=== PATIENT | female | born 1995 | race American Indian/Alaskan Native ===

== ENCOUNTER 2019-07-16 20:50 | Emergency (ER) | payer MEDICAID ==
[2019-07-16 20:56] VITALS: BP 149/78
--- NOTE | 2019-07-17 00:50 | Ultrasound Report ---
US OB <= 14 weeks fetus, US OB transvaginal INDICATION / CLINICAL INFORMATION: PAIN/CRAMPING WITH PREGNACY. COMPARISON: None available. FINDINGS: There is a single viable intrauterine gestation. The crown-rump length is 6.1 cm corresponding to a 12 week 4 day gestation. heart rate is recorded at 179 bpm. The placenta is anterior. There is a 2 cm complex right ovarian cyst. The left ovary is normal. IMPRESSION: 1. Single living 12 week 4 day intrauterine gestation. Signer Name: Fitz Shin MD Signed: 07/17/2019 12:45 AM Workstation Name: [id number]
[2019-07-17] MEDS ORDERED: ZOFRAN ODT PO ONE (01:09)
[2019-07-17] MEDS ORDERED: NORCO 5/325 PO ONE (01:09)
[2019-07-17] MEDS ORDERED: TYLENOL #3 PO ONE (01:10)
[2019-07-17 01:13] LABS: Amorphous Crystals,Urine Few; Bilirubin,Urine NEG (Negative); Blood,Urine NEG (Negative); Color,Urine Yellow (Yellow); Mucus,Urine FEW /HPF; Protein,Urine <15 mg/dL mg/dL (Negative)
--- NOTE | 2019-07-17 01:49 | Emergency Department Report ---
ED General Adult HPI - General Chief complaint: Abdominal Pain Stated complaint: TOOTHACHE,EAR ACHE,LOWER STOMACH PAIN Source: patient Mode of arrival: Ambulatory Limitations: No Limitations - History of Present Illness Initial comments: Patient is a A0 24-year-old -[place] Citizen female who is approximately 12 weeks gestation and presents to the ED with complaint of acute onset persistent sore throat, bilateral ear pain, upper lip swelling with ulcerated lesions, nausea, vomiting, low abdominal pain for the last 2 days. Patient denies fever, chills, dizziness, chest pain, change in vision, vaginal bleeding, dysuria, urinary frequency and urgency or seizures and syncope. MD Complaint: Severe right ear pain, sore throat, oral lesions -: Sudden Location: face, mouth Radiation: non-radiation Severity scale (0 -10): 7 Quality: aching, sharp, constant Consistency: constant Improves with: none Worsens with: none Associated Symptoms: denies other symptoms, cough, headaches, nausea/vomiting. denies: confusion, chest pain, diaphoresis, fever/chills, loss of appetite, malaise, rash, seizure, syncope, weakness, other Treatments Prior to Arrival: none - Related Data Previous Rx's Medication Instructions Recorded Last Taken Type Acetaminophen/Codeine [Tylenol 1 tab PO Q6H PRN #12 tab 07/17/19 Unknown Rx /Codeine # 3 tab] Acyclovir [Zovirax Tab] 400 mg PO Q8H #30 tab 07/17/19 Unknown Rx Clindamycin [Clindamycin CAP] 300 mg PO Q8HR #60 capsule 07/17/19 Unknown Rx Promethazine [Phenergan] 25 mg PO Q6HR PRN #30 tab 07/17/19 Unknown Rx Allergies Allergy/AdvReac Type Severity Reaction Status Date / Time amoxicillin Allergy Unknown Verified 07/16/19 20:56 azithromycin [From Zithromax] Allergy Unknown Verified 07/16/19 20:56 ED Review of Systems ROS: Stated complaint: TOOTHACHE,EAR ACHE,LOWER STOMACH PAIN Other details as noted in HPI Constitutional: denies: chills, fever Eyes: denies: eye pain, eye discharge, vision change ENT: ear pain (right ear), throat pain, dental pain, congestion, other (painful oral lesions) Respiratory: denies: cough, shortness of breath, wheezing Cardiovascular: denies: chest pain, palpitations, dyspnea on exertion Endocrine: no symptoms reported Gastrointestinal: nausea, vomiting. denies: abdominal pain, diarrhea Genitourinary: denies: urgency, dysuria, discharge Musculoskeletal: denies: back pain, joint swelling, arthralgia Skin: denies: rash, lesions Neurological: denies: headache, weakness, paresthesias Psychiatric: denies: anxiety, depression Hematological/Lymphatic: denies: easy bleeding, easy bruising ED Past Medical Hx - Social History Smoking Status: Current Every Day Smoker Substance Use Type: None - Medications Home Medications: Home Medications Medication Instructions Recorded Confirmed Last Taken Type Acetaminophen/Codeine [Tylenol 1 tab PO Q6H PRN #12 tab 07/17/19 Unknown Rx /Codeine # 3 tab] Acyclovir [Zovirax Tab] 400 mg PO Q8H #30 tab 07/17/19 Unknown Rx Clindamycin [Clindamycin CAP] 300 mg PO Q8HR #60 capsule 07/17/19 Unknown Rx Promethazine [Phenergan] 25 mg PO Q6HR PRN #30 tab 07/17/19 Unknown Rx ED Physical Exam - General Limitations: No Limitations General appearance: alert, in no apparent distress - Head Head exam: Present: atraumatic, normocephalic, normal inspection - Eye Eye exam: Present: normal appearance, PERRL, EOMI Pupils: Present: normal accommodation - ENT ENT exam: Present: mucous membranes moist, other (Erythematous bulging bilateral tympanic membranes; grossly congested nasal passages; painful severely tender in early ulcerated lesions.) - Neck Neck exam: Present: normal inspection, full ROM. Absent: tenderness - Respiratory Respiratory exam: Present: normal lung sounds bilaterally. Absent: respiratory distress, wheezes, rales, rhonchi, chest wall tenderness, accessory muscle use, decreased breath sounds - Cardiovascular Cardiovascular Exam: Present: normal rhythm, tachycardia, normal heart sounds. Absent: systolic murmur, diastolic murmur, rubs, gallop - GI/Abdominal GI/Abdominal exam: Present: soft, normal bowel sounds. Absent: tenderness, guarding, hyperactive bowel sounds, hypoactive bowel sounds, organomegaly - Extremities Exam Extremities exam: Present: normal inspection, full ROM, normal capillary refill - Back Exam Back exam: Present: normal inspection, full ROM. Absent: CVA tenderness (L), muscle spasm - Neurological Exam Neurological exam: Present: alert, oriented X3, CN II-XII intact, normal gait, reflexes normal - Psychiatric Psychiatric exam: Present: normal affect, normal mood - Skin Skin exam: Present: warm, dry, intact, normal color. Absent: rash ED Course Vital Signs 07/16/19 20:55 Temperature 98.4 F Pulse Rate 100 H Respiratory 16 Rate Blood Pressure 149/78 O2 Sat by Pulse 96 Oximetry - Reevaluation(s) Reevaluation #1: 07/17/19 01:50 This is a A0 -[place] female who is approximately 12 weeks gestation who presents to the ED with complaint of acute onset persistent severe bilateral ear pain, sore throat, nasal and sinus condition, painful oral lesions and sore throat for the last 2 days. In the ED, patient is alert and oriented 3 and is not in distress but appears to be in pain and is tachycardic in tri age. Patient was treated for [place] [id number] and transvaginal ultrasound shows a single viable intrauterine gestation. The crown- rump length is 6.1 cm corresponding to a 12 week 4 day gestation. heart rate is recorded at 179 bpm. The placenta is anterior. There is a 2 cm complex right ovarian cyst. The left ovary is normal. Urinalysis is unremarkable. Patient was treated for pain in the ED and on reevaluation, patient's pain is well controlled with medications. Patient was discharged home on antibiotics and antivirals as well as pain medications and antiemetics. Patient was advised follow-up with [employer] physician in 7-10 days for reevaluation or return to the ED immediately if symptoms get worse. 07/17/19 02:58 ED Medical Decision Making - Radiology Data Radiology results: report reviewed, image reviewed Findings [facility] [address] [place] [address] Ultrasound Report Signed Patient: ESTEBAN VALENZUELA MR#: [id number] : 1995 Acct:[id number] Age/Sex: 24 / F ADM Date: 07/16/19 Loc: ED Attending Dr: Ordering Physician: DEMARCUS LEAL Date of Service: 07/16/19 Procedure(s): US OB transvaginal Accession Number(s): [id number] cc: DEMARCUS LEAL US OB <= 14 weeks fetus, US OB transvaginal INDICATION / CLINICAL INFORMATION: PAIN/CRAMPING WITH PREGNACY. COMPARISON: None available. FINDINGS: There is a single viable intrauterine gestation. The crown-rump length is 6.1 cm corresponding to a 12 week 4 day gestation. heart rate is recorded at 179 bpm. The placenta is anterior. There is a 2 cm complex right ovarian cyst. The left ovary is normal. IMPRESSION: 1. Single living 12 week 4 day intrauterine gestation. Signer Name: Fitz Shin MD Signed: 07/17/2019 12:45 AM Workstation Name: [id number] Transcribed By: [place] Dictated By: Fitz Shin MD Electronically Authenticated By: Fitz Shin MD Signed Date/Time: 07/17/1944 DD/ TD/TT: - Medical Decision Making This is a A0 -[place] Citizen female who is approximately 12 weeks gestation who presents to the ED with complaint of acute onset persistent severe bilateral ear pain, sore throat, nasal and sinus condition, painful oral lesions and sore throat for the last 2 days. In the ED, patient is alert and oriented 3 and is not in distress but appears to be in pain and is tachycardic in triage. Patient was treated for pain in [place] [id number] and transvaginal ultrasound shows a single viable intrauterine gestation. The crown- rump length is 6.1 cm corresponding to a 12 week 4 day gestation. heart rate is recorded at 179 bpm. The placenta is anterior. There is a 2 cm complex right ovarian cyst. The left ovary is normal. Urinalysis is unremarkable. Patient was treated for pain in the ED and on reevaluation, patient's pain is well controlled with medications. Patient was discharged home on antibiotics and antivirals as well as pain medications and antiemetics. Patient was advised follow-up with [employer] physician in 7-10 days for reevaluation or return to the ED immediately if symptoms get worse. - Differential Diagnosis Otitis media; Acute URI; Herpes simplex; pharyngitis, Ovarian Cyst; UTI Critical care attestation.: If time is entered above; I have spent that time in minutes in the direct care of this critically ill patient, excluding procedure time. ED Disposition Clinical Impression: Acute otitis media with effusion of both ears, Herpes zoster infection of oral mucosa Acute pharyngitis Qualifiers: Pharyngitis/tonsillitis etiology: unspecified etiology Qualified Code(s): J02.9 - Acute pharyngitis, unspecified Ovarian cyst Qualifiers: Laterality: right Qualified Code(s): N83.201 - Unspecified ovarian cyst, right side Disposition: TO HOME OR SELFCARE Is pt being admited?: No Does the pt Need Aspirin: No Condition: Stable Instructions: Pharyngitis (ED), Oral Herpes Simplex Virus Infections (ED), Abdominal Pain (ED) Additional Instructions: Take medication with food, drink plenty of fluids and follow-up with your [facility] care physician in 5-7 days for reevaluation. Return to the ED immediately if symptoms get worse. Prescriptions: Clindamycin [Clindamycin CAP] 300 mg PO Q8HR #60 capsule Promethazine [Phenergan] 25 mg PO Q6HR PRN #30 tab PRN Reason: Nausea Acetaminophen/Codeine [Tylenol /Codeine # 3 tab] 1 tab PO Q6H PRN #12 tab PRN Reason: Pain , Severe (7-10) Acyclovir [Zovirax Tab] 400 mg PO Q8H #30 tab Referrals: SANIA GARCIA [Other] - 3-5 Days Time of Disposition: 01:56 Print Language: PRYDEINIG
== END 2019-07-17 03:20 | disposition home or self-care (01) ==
LOC: ED 20:50
DX: O98.511 Other viral diseases complicating pregnancy, first trimester (principal); B02.8 Zoster with other complications; O34.81 Maternal care for other abnormalities of pelvic organs, first trimester; N83.201 Unspecified ovarian cyst, right side; O99.331 Smoking (tobacco) complicating pregnancy, first trimester; Z3A.12 12 weeks gestation of pregnancy; J02.9 Acute pharyngitis, unspecified
CPT/HCPCS: 36415; 76801; 76817; 81001; 84702; Q0162

== ENCOUNTER 2019-12-20 21:54 | Outpatient (CLI) | payer MEDICAID ==
[2019-12-20] MEDS ORDERED: LACTATED RINGERS 500 ML IV ONE (23:00)
[2019-12-20 23:47] LABS: Bacteria,Urine 1+ /HPF (Negative); Bilirubin,Urine NEG (Negative); Blood,Urine NEG (Negative); Color,Urine Yellow (Yellow); Mucus,Urine FEW /HPF; Protein,Urine <15 mg/dL mg/dL (Negative); Urobilinogen,Urine < 2.0 mg/dL (<2.0); WBC,Urine < 1.0 /HPF (0.0-6.0)
[2019-12-21 00:11] VITALS: BP 108/57
--- NOTE | 2019-12-21 00:25 | Ultrasound Report ---
CLINICAL DATA: See reason for exam. TECHNICAL DATA: Limited ultrasound examination for HERBER-and fluid index FINDINGS: There appears be normal amniotic fluid HERBER 8.2 cm IMPRESSION: HERBER as noted Signer Name: Sunny Garcia MD Signed: 12/21/2019 12:20 AM Workstation Name: [id number]
== END 2019-12-21 00:37 | disposition home or self-care (01) ==
LOC: TRG 21:54
PROVIDERS: ATTEND Obstetrics & Gynecology
DX: O47.03 False labor before 37 completed weeks of gestation, third trimester (principal); Z3A.34 34 weeks gestation of pregnancy
CPT/HCPCS: 76815; 81001